=== PATIENT | male | born 2000 | race Caucasian/White ===

== ENCOUNTER 2025-01-03 03:57 | Emergency (ER) | payer OTHER, SELFPAY ==
[2025-01-03 04:00] VITALS: BP 132/76
--- NOTE | 2025-01-03 04:28 | ED.GENMED ---
History of Present Illness
General
Chief Complaint: Nose Bleed
Source: patient
Exam Limitations: none
Time Seen by Provider: 01/03/25 04:21
Nursing documentation reviewed up to this point in time: agreed with
History of Present Illness
History of Present Illness:
24 y/o male with hx of plaque psoriasis, anxiety, depression who presents to the ER today with concerns of bleeding from the left nare for the past 20 min. Pt states that he has a hx of frequent nose bleeds and will get a nosee bleed every few days
but patient reports that he has never bled this heavily from a nosebleed before. Patient reports that he woke up in the middle of the night when he went to stratch the inside of his nose and it started bleeding. Patient states that he has medical
induced syncope and states that the site of blood did make him feel dizzy. Patient denies any hematemesis, abdominal pain, fever or chills.
Past History
Past History
ED Past Medical History: Psychiatric (A/D)
Social History
Tobacco: Non-smoker
Review of Systems
Review of Systems
All Other Systems: ROS reviewed and negative except as documented in HPI and ROS
Phy Exam
Physical Exam
Physical Exam:
General: Patient is well appearing and in no acute distress; non-toxic
Skin: Warm and dry, no rashes or lesions
Head: Normocephalic, atraumatic
Eyes: Sclera non-icteric. EOMs intact.
Nose: Minimal bleeding from left nare. No septal hematoma.
Throat: No blood in the posterior pharynx
Cardiac: Regular rate
Pulm: Normal respiratory effort
Neuro: CN II-XII intact, no focal neurologic deficits.
Psychiatric: Appropriate mood and affect.
Course
Orders/Labs/Results
Orders:
Orders
01/03/25 04:27
Oxymetazoline HCl [Afrin Nasal [place]] See Dose Instructions NASAL BID ONE
Vital Signs
Initial and Last Documented VS:
Initial Vital Signs
Pulse Resp BP Pulse Ox
82 18 132/76 97
01/03/25 04:00 01/03/25 04:00 01/03/25 04:00 01/03/25 04:00
Last Documented Vital Signs
Pulse Resp BP Pulse Ox
82 18 132/76 97
01/03/25 04:00 01/03/25 04:00 01/03/25 04:00 01/03/25 04:00
Procedures
Nosebleed
Drug treatment: Epinephrine
Treatment: local pressure applied
Post treatment bleeding: none- good control
MDM/Problems Addressed
Differential Diagnosis Includes:
ddx include anterior epistaxis, posterior epistaxis, nasal mucosa abrasion
MDM/Problems Addressed:
24 y/o male presents today with concerns of acute anterior epistaxis. Bleeding largely improved on my assessment however did place epinephrine soaked cotton ball and afrin spray for vasoconstriction. I observed patient for a period of time with
pressure applied. No evidence of rebleeding. During my assessment patient did have a near syncopal episode--he states that this happens with doctors and that the idea of blood makes him nervous. Pt became diaphoretic and pale. Pt placed in supine
position. Pt than given water, juice, ice pack. Symptoms did improve. Pt stable for discharge. Pt does have frequent nose bleeds so we discussed ENT follow up.
*Critical Care Note
Total Time (30-74mins, 75-104mins- exclusive of procedures): Not Applicable
ED Attending Note
-
Portions of this chart may have been created with voice recognition software.� Occasional wrong word or��sound alike� substitutions may have occurred due to the inherent limitations of voice recognition software.
Discharge Plan
Departure
Patient Disposition: Home (Routine Discharge)
Date of Disposition: 01/03/25
Time of Disposition: 05:12
Patient with high blood pressure during this ER visit?: Yes
Condition: Good
Discharge Problem:
Acute anterior epistaxis
Instructions: Nosebleeds (DC), BLOOD PRESSURE
Prescriptions:
No Action
clindamycin HCl 300 MG capsule
300 mg PO Q6 Qty: 40 0RF
Referrals:
Nikolay Esparza MD [Active] - Call in 1-3 days for appt
Activity Restrictions/Additional Instructions:
Please call attached number to schedule appointment with ears nose and throat specialist.
PLEASE RETURN EMERGENCY DEPARTMENT SHOULD YOU DEVELOP ACUTE WORSENING OF YOUR SYMPTOMS, PERSISTENT BLEEDING, VOMITING BLOOD, ABDOMINAL PAIN, FEVERS OR CHILLS, CHEST PAIN, OR ANY OTHER SIGNS OR SYMPTOMS WORRISOME TO YOU.
Interventions
Interventions:
*Risk Screen - Suicide Last Done: 01/03/25 04:00
*General Assessment Last Done: 01/03/25 05:28
*Neglect/Abuse Screening Last Done: 01/03/25 04:00
*ED- Fall Risk Assessment Last Done: 01/03/25 05:28
*ED COVID-19 Vaccine History Last Done: 01/03/25 05:28
*Nursing Disposition Last Done: 01/03/25 05:28
ED-EENT Assessment Last Done: 01/03/25 04:35
Discharge Date and Time
Discharge Date/Time: 01/03/25 05:30
Print Language: URDU
[2025-01-03] MEDS: AFRIN NASAL SPRAY 30 SPRAYS NASAL (04:30)
== END 2025-01-03 05:30 | disposition home or self-care (01) ==
LOC: EMR 03:57
PROVIDERS: EMERGENCY PHYSICIAN Student in an Organized Health Care Education/Training Program; FAMILY PHYSICIAN Physician Assistant Medical
DX: R04.0 Epistaxis (principal); R03.0 Elevated blood-pressure reading, without diagnosis of hypertension; F41.9 Anxiety disorder, unspecified; F32.A Depression, unspecified; L40.0 Psoriasis vulgaris
CPT/HCPCS: 99282; 30901

== ENCOUNTER 2025-06-11 17:51 | Emergency (ER) | payer OTHER, SELFPAY ==
[2025-06-11 17:59] VITALS: BP 105/64
--- NOTE | 2025-06-11 18:55 | ED.GENMED ---
History of Present Illness
General
Chief Complaint: Skin Surface Trauma
Source: patient and family
Exam Limitations: none
Time Seen by Provider: 06/11/25 18:07
Nursing documentation reviewed up to this point in time: agreed with
History of Present Illness
History of Present Illness:
24-year-old male presenting with concerns of a laceration to his left thumb that occurred prior to arrival from a support representative knife. He claims a knife was very clean and that his hand was also clean. He claims that he had a tetanus shot within the
last 3 years. Denies any numbness weakness or changes in range of motion. He claims that he feels some dizziness but he typically does get this and does vagal when he sees blood.
Past History
Past History
ED Past Medical History: Psychiatric (A/D)
Social History
Tobacco: Non-smoker
Review of Systems
Review of Systems
Allergies reviewed?: Yes
All Other Systems: ROS reviewed and negative except as documented in HPI and ROS
Phy Exam
Physical Exam
Physical Exam:
GENERAL: Alert , in no apparent distress
EYE: pupils equal and reactive
NECK: Supple, no significant adenopathy.
ENT: o/p clr, mmm.
CARDIAC: Regular rate and rhythm .
LUNGS: Clear breath sounds bilaterally, no acute respiratory distress, no wheezes/rales/rhonchi
ABDOMEN: Soft, without focal tenderness, no r/g, no cvat
NEUROLOGICAL: Alert and oriented, no focal neuro deficits
SKIN: 2.5 cm laceration to the left thumb on the palmar aspect just proximal to the IPJ. Warm and dry, skin intact.
MUSCULOSKELETAL: No edema, well perfused.
PSYCH: Normal and appropriate interaction.
Course
Orders/Labs/Results
Orders:
Orders
06/11/25 18:57
Ibuprofen [Motrin] 600 mg PO NOW STA
Vital Signs
Initial and Last Documented VS:
Initial Vital Signs
Temp Pulse Resp BP Pulse Ox
98.4 F 72 16 105/64 98
06/11/25 17:59 06/11/25 17:59 06/11/25 17:59 06/11/25 17:59 06/11/25 17:59
Last Documented Vital Signs
Temp Pulse Resp BP Pulse Ox
98.4 F 72 16 105/64 98
06/11/25 17:59 06/11/25 17:59 06/11/25 17:59 06/11/25 17:59 06/11/25 18:57
Procedures
Laceration Closure
Left Palmar First Finger:
Status of Wound: clean
Size of Wound in cm: 2.5
Description of Wound Edges: sharp
Preparation: cleaned with saline
Anesthesia: 2% Lidocaine and Digital-Regional
Revision/Debridement: routine- no revision and irrigate-direct pressure
Wound exploration: explored to base- no FB and no tendon involvement
Type of Closure: single layer closure and interrupted sutures
Skin Closure Material: 4-0 nylon
Number of sutures: 3
MDM/Problems Addressed
MDM/Problems Addressed:
24-year-old male presenting to the emergency department with concerns of a laceration to his left thumb this occurred with a clean knife and claims that his hand was otherwise clean. He is low risk for infection. This was explored to its base and
subcutaneous in depth no foreign body seen and irrigated thoroughly. He is up-to-date with a tetanus shot. Laceration is relatively superficial and would not average the bone. No x-ray performed. Otherwise sutured with 3 not dissolving stitches.
Advised for follow-up in 2 weeks for suture removal. Return precautions given.
*Pulse Oximetry
SaO2: 98
Oxygen Mode of Delivery: Room air
Patient hypoxic: no (98)
*Critical Care Note
Total Time (30-74mins, 75-104mins- exclusive of procedures): Not Applicable
ED Attending Note
-
Portions of this chart may have been created with voice recognition software.� Occasional wrong word or��sound alike� substitutions may have occurred due to the inherent limitations of voice recognition software.
Discharge Plan
Departure
Patient Disposition: Home (Routine Discharge)
Date of Disposition: 06/11/25
Time of Disposition: 18:55
Patient with high blood pressure during this ER visit?: No
Condition: Good
Covid-19: Not Applicable
Discharge Problem:
Laceration of thumb
Instructions: Laceration Repair With Stitches (DC)
Prescriptions:
No Action
clindamycin HCl 300 MG capsule
300 mg PO Q6 Qty: 40 0RF
Referrals:
Santy Prince MD [Family Provider, [facility]]
Activity Restrictions/Additional Instructions:
You came to the emergency department today with concerns of a laceration to your thumb. This was cleaned thoroughly and closed with 3 stitches. Please keep the area clean covered and follow-up in 14 days for suture removal. Return for any
worsening, new or concerning symptoms.
Interventions
Interventions:
ED-Skin Assessment Last Done: 06/11/25 18:16
Discharge Date and Time
Print Language: GIBRALTARIAN
[2025-06-11] MEDS: MOTRIN 600 MG PO (19:03)
== END 2025-06-11 19:14 | disposition home or self-care (01) ==
LOC: EMR 17:51
PROVIDERS: EMERGENCY PHYSICIAN Emergency Medicine; FAMILY PHYSICIAN Family Medicine
DX: S61.012A Laceration without foreign body of left thumb without damage to nail, initial encounter (principal); W26.0XXA Contact with knife, initial encounter
CPT/HCPCS: 99283; 12001

== ENCOUNTER 2025-09-18 09:12 | Emergency (ER) | payer OTHER, SELFPAY ==
[2025-09-18] VITALS (9 sets, daily range): BP systolic 114–160; BP diastolic 61–85; BMI 21.7
[2025-09-18] MEDS: ZOFRAN 4 MG IV (09:54)
[2025-09-18] MEDS: TORADOL 15 MG IV (09:54)
[2025-09-18] MEDS: NSS 500 IV (09:55)
[2025-09-18 10:16] LABS: Hematocrit 36.5 % (39.0-52.0); Hemoglobin 12.8 g/dL (13.0-18.0); Mean Corp Hgb Conc. 35.1 g/dL (33.0-37.0); Mean Corpuscular Volume 85.7 fL (80.0-94.0); Nucleated Red Blood Cells % 0 % (-); Platelet Count 205 10^3/uL (130-400); Red Cell Dist. Width 12.6 % (11.5-14.5)
[2025-09-18 10:18] LABS: Urine Character Clear (Clear)
[2025-09-18 10:32] LABS: ALT (SGPT) 23 U/L (0-50); AST (SGOT) 24 U/L (17-59); Albumin 3.9 g/dl (3.5-5.0); Alkaline Phosphatase 47 U/L (38-126); Blood Urea Nitrogen 10 mg/dl (9-20); Calcium 9.1 mg/dl (8.4-10.2); Carbon Dioxide 28 mmol/L (22-30); Chloride 105 mmol/L (98-107); Estimated Creatinine Clearance > 125 ml/min; Glucose 105 mg/dl (70-99); Potassium 4.1 mmol/L (3.5-5.1); Sodium 137 mmol/L (135-145); Total Protein 6.4 g/dl (6.3-8.2); eGFR > 60.00
[2025-09-18 11:01] LABS: Urine Red Blood Cell 40-50 /HPF (0-2); Urine Squamous Cell 0-2 /LPF (Few)
[2025-09-18] MEDS: DILAUDID 0.5 MG IV ×2 (11:41→14:09)
--- NOTE | 2025-09-18 13:58 | ED.GENMED ---
History of Present Illness
General
Chief Complaint: Back Pain
Source: patient and family
Exam Limitations: none
Time Seen by Provider: 09/18/25 09:38
Nursing documentation reviewed up to this point in time: agreed with
History of Present Illness
History of Present Illness:
Patient diagnosed with kidney stone at [facility] 2 days ago, presents to ED secondary to worsening pain this morning, while visiting his parents. Patient states that pain medications were sent to the wrong pharmacy. As such, he
currently does not have any pain medication at home. Patient reports nausea sensation with pain. Denies fever or chills. Denies difficulty with urination. Denies previous history of kidney stones. Denies loss of appetite.
Past History
Past History
ED Past Medical History: Psychiatric (A/D)
Social History
Tobacco: Non-smoker
Review of Systems
Review of Systems
Allergies reviewed?: Yes
All Other Systems: ROS reviewed and negative except as documented in HPI and ROS
Constitutional: Denies fever or chills
ABD/GI: Reports nausea; Denies vomiting
: Denies dysuria or difficulty voiding
Musculoskeletal: Reports back pain
Skin: Reports no symptoms
Neurological: Reports no symptoms
Phy Exam
Physical Exam
Physical Exam:
Physical Exam
General: moderate painful distress, not acutely ill. afebrile
Head: nc/at. eomi
Neck: supple. normal range of motion
Abdomen: normal bowel sounds. not tender. no cva tenderness
Neuro: alert and oriented x 3. no focal neurological deficits
Skin: no rash
Psychiatric: well kept. interactive and cooperative
Extremities: no edema. no calf tenderness.
Course
Orders/Labs/Results
Orders:
Orders
09/18/25 09:45
0.9% Sodium Chloride 500 ml [Nss] 500 ml IV BOLUS
Ketorolac [Toradol] 15 mg IV NOW STA
Ondansetron Injectable [Zofran] 4 mg IV NOW STA
09/18/25 09:59
CMP [Comprehensive Metabolic Panel] Urgent
Complete Blood Count/With Diff Urgent
Urinalysis Reflex To Culture Urgent
Date Specimen was Collected: 09/18/25
Time Specimen was Collected: 09:27
Urine Microscopic Reflex Cult Urgent
09/18/25 11:26
HYDROmorphone [Dilaudid] 0.5 mg IV NOW STA
09/18/25 13:58
HYDROmorphone [Dilaudid] 0.5 mg IV NOW STA
Abnormal Lab Results
09/18/25
09:59
RBC 4.26 L 10^6/uL
(4.70-6.10)
Hgb 12.8 L g/dL
(13.0-18.0)
Hct 36.5 L %
(39.0-52.0)
Lymphocytes % 16.4 L %
(20.5-51.1)
Glucose 105 H mg/dl
(70-99)
Ur Occult Blood Reflex 4+ A
(Negative)
Urine RBC 40-50 A /HPF
(0-2)
Urine Bacteria (Reflex) Few A
(Negative)
Urine Albumin (Reflex) 2+ A
(Neg - Trace)
09/18/25 09:59
09/18/25 09:59
Vital Signs
Initial and Last Documented VS:
Initial Vital Signs
Temp Pulse Resp BP Pulse Ox
97.7 F 65 18 160/69 100
09/18/25 09:20 09/18/25 09:20 09/18/25 09:20 09/18/25 09:20 09/18/25 09:20
Last Documented Vital Signs
Temp Pulse Resp BP Pulse Ox
97.6 F 82 20 131/85 99
09/18/25 14:37 09/18/25 14:37 09/18/25 14:37 09/18/25 14:37 09/18/25 14:37
MDM/Problems Addressed
MDM/Problems Addressed:
CT report from 2 days ago reviewed, as available on patient's portal access -5 mm obstructing renal stone noted at UVJ with mild hydronephrosis. As such, no indication to repeat imaging studies at this time.
Patient reports significant improvement of symptoms after treatment. Patient at this time, feels comfortable going home. Patient will be provided with urine strainer along with short course of pain medication, as well as referral to urology for an
outpatient consultation. Once again return precautions provided, i.e. fever/vomiting/inability to urinate. Patient expressed understanding, at time of discharge, to the care of his father.
*Pulse Oximetry
SaO2: 99
Oxygen Mode of Delivery: Room air
Patient hypoxic: no
*Critical Care Note
Total Time (30-74mins, 75-104mins- exclusive of procedures): Not Applicable
ED Attending Note
-
Portions of this chart may have been created with voice recognition software.� Occasional wrong word or��sound alike� substitutions may have occurred due to the inherent limitations of voice recognition software.
Discharge Plan
Departure
Patient Disposition: Home (Routine Discharge)
Date of Disposition: 09/18/25
Time of Disposition: 13:58
Patient with high blood pressure during this ER visit?: Yes
Discharge Problem:
Renal colic
Instructions: Kidney stones in adults
Prescriptions:
New
oxycodone-acetaminophen [Percocet] 5-325 mg Tablet
1 tab PO Q6HPRN PRN (Reason: pain) Qty: 12 0RF
ondansetron 4 mg Tablet,Disintegrating
4 mg PO TIDPRN PRN (Reason: nausea/vomiting) Qty: 12 0RF
tamsulosin 0.4 mg capsule
0.4 mg PO DAILY Qty: 7 0RF
ketorolac 10 mg tablet
10 mg PO Q8H PRN (Reason: Pain) Qty: 14 0RF
Rx Instructions:
maximum total duration of 5 days from all oral, intranasal, or parenteral formulations
Referrals:
UNKNOWN - PT DOES,NOT KNOW [Family Provider]
Activity Restrictions/Additional Instructions:
As discussed, please follow-up with the referred urologist for further evaluation and treatment. Please consider return to ED with worsening symptoms, i.e. fever/inability to urinate/worsening pain/vomiting. Your prescriptions have been sent
electronically to [facility] pharmacy on [facility] in [place].
Interventions
Interventions:
*General Assessment Last Done: 09/18/25 09:50
*Neglect/Abuse Screening Last Done: 09/18/25 09:20
*ED COVID-19 Vaccine History Last Done: 09/18/25 09:50
*ED Influenza Vaccine History Last Done: 09/18/25 09:50
[facility] Fall Risk Assessment Tool Last Done: 09/18/25 09:50
*Risk Screen - Suicide (C-SSRS) Last Done: 09/18/25 09:20
*Nursing Disposition Last Done: 09/18/25 14:37
ED-Musculoskeletal Assessment Last Done: 09/18/25 09:50
Discharge Date and Time
Discharge Date/Time: 09/18/25 14:42
Print Language: MONGOLIAN
== END 2025-09-18 14:42 | disposition home or self-care (01) ==
LOC: EMR 09:12
PROVIDERS: EMERGENCY PHYSICIAN Emergency Medicine
DX: N13.2 Hydronephrosis with renal and ureteral calculous obstruction (principal)
CPT/HCPCS: 99284; 96374; 96375; 96361; 96376; 80053; 81003; 81015; 85025